=== PATIENT | male | born 1950 | race Two or more races ===

== ENCOUNTER 2019-11-19 11:37 | Emergency (ER) | payer OTHER ==
[~2019-11-19] VITALS: Ht 177.8 cm; Wt 78.5 kg
[2019-11-19 12:20] VITALS: BP 156/86
== END 2019-11-19 12:50 | disposition home or self-care (01) ==
LOC: ED 11:37
DX: S00.01XA Abrasion of scalp, initial encounter (principal); R11.0 Nausea; Z98.890 Other specified postprocedural states; W22.03XA Walked into furniture, initial encounter; Y93.89 Activity, other specified; Y92.89 Other specified places as the place of occurrence of the external cause; Y99.8 Other external cause status